=== PATIENT | female | born 1975 | race Caucasian/White ===

== ENCOUNTER 2021-10-24 07:26 | Emergency (ER) | payer OTHER ==
[~2021-10-24] VITALS: Ht 152.4 cm; Wt 72.6 kg
[2021-10-24 07:54] VITALS: BP_SYST 113
[2021-10-24 09:54] VITALS: BP_SYST 106
== END 2021-10-24 09:53 | disposition home or self-care (01) ==
LOC: SED 07:26
DX: R07.89 Other chest pain (principal); R05.9 Cough, unspecified; Z79.899 Other long term (current) drug therapy; Z88.8 Allergy status to other drugs, medicaments and biological substances
CPT/HCPCS: 71045; 93005; 99283